=== PATIENT | female | born 1945 | race Caucasian/White ===

== ENCOUNTER 2018-07-02 16:46 | Inpatient (IN) | payer MEDICARE ==
[2018-07-02 17:57] LABS: ABS Basophils 0.1 10^3/ul (0-0.2); ABS Eosinophils 0.1 10^3/ul (0-0.6); ABS Lymphocytes 0.7 10^3/ul (1.0-4.8); ABS Monocytes 0.7 10^3/ul (0-0.8); ABS Neutrophils 10.3 10^3/ul (1.5-7.7); ABS Nucleated RBC 0 10^3/ul; Eosinophil % 0.8 % (0-6); Hematocrit 44 % (35-47); Hemoglobin 14.4 g/dl (12.0-16.0); Lymphocyte % 6.1 % (25-47); Mean Corpuscular HGB Conc 33 g/dl (31-36); Mean Corpuscular Hemoglobin 28 pg (27-31); Mean Corpuscular Volume 85 fL (80-97); Mean Platelet Volume 9.3 um3 (7.4-10.4); Nucleated Red Blood Cells % 0.1; Platelet Count 185 10^3/ul (150-450); Red Cell Distribution Width 15 % (10.5-15)
[2018-07-02] MEDS ORDERED: Morphine INJ* 2 MG/ML 1 ML SYRINGE (TWO MG - NEW SYRINGE VERSION) IV ONE (17:57)
--- NOTE | 2018-07-02 17:59 | ED ---
Lower Extremity - HPI Summary HPI Summary: 72-year-old female presents with left lower leg injury today. States that her dog's leash got caught in her left leg. She has pain in her left femur. She denies any previous fracture to the area. No numbness or tingling. She has not been able to place weight on the area. She denies any head injury or loss consciousness. She denies any chest pain or shortness of breath. fall was mechanical fall. She denies any other injury. States she has achy pain at baseline but when she moves the area she has an extreme pain. She denies any history asthma or COPD. She is not diabetic. - History of Current Complaint Chief Complaint: EDExtremityLower Stated Complaint: FALL/LEG PAIN Time Seen by Provider: 07/02/18 17:38 Pain Intensity: 5 - Allergies/Home Medications Allergies/Adverse Reactions: Allergies Allergy/AdvReac Type Severity Reaction Status Date / Time Sulfa (Sulfonamide Allergy Rash Verified 07/02/18 17:29 Antibiotics) PMH/Surg Hx/FS Hx/Imm Hx Endocrine/Hematology History: Denies: Hx Anticoagulant Therapy Cardiovascular History: Reports: Other Cardiovascular Problems/Disorders - murmur Denies: Hx Myocardial Infarction Respiratory History: Denies: Hx Asthma, Hx Chronic Obstructive Pulmonary Disease (COPD) - Immunization History Immunizations Up to Date: Yes Infectious Disease History: No Infectious Disease History: Denies: Traveled Outside the [place] in Last 30 Days - Family History Known Family History: Positive: Hypertension - Social History Alcohol Use: None Substance Use Type: Reports: None Smoking Status (MU): Former Smoker Review of Systems Negative: Fever Negative: Chest Pain Negative: Shortness Of Breath Positive: Myalgia - left leg pain All Other Systems Reviewed And Are Negative: Yes Physical Exam Triage Information Reviewed: Yes Vital Signs On Initial Exam: Initial Vitals Temp Pulse Resp BP Pulse Ox 98.5 F 76 17 158/87 91 07/02/18 17:10 07/02/18 17:10 07/02/18 17:10 07/02/18 17:10 07/02/18 17:10 Vital Signs Reviewed: Yes Appearance: Positive: Well-Appearing Skin: Positive: Warm, Dry Head/Face: Positive: Normal Head/Face Inspection Eyes: Positive: Normal, Conjunctiva Clear ENT: Positive: Pharynx normal Respiratory/Lung Sounds: Positive: Clear to Auscultation, Breath Sounds Present Cardiovascular: Positive: Normal, RRR Musculoskeletal: Positive: Limited @ - left leg, Other - external rotated, good pulses, capilary refill<2 secs, sensation grossly intact Neurological: Positive: Normal Psychiatric: Positive: Normal Diagnostics - Vital Signs Vital Signs Temp Pulse Resp BP Pulse Ox 07/02/18 17:10 98.5 F 76 17 158/87 91 - Laboratory Result Diagrams: 07/02/18 17:51 07/02/18 17:51 Lab Statement: Any lab studies that have been ordered have been reviewed, and results considered in the medical decision making process. - CT hip CT Interpretation: Positive (See Comments) - left intertronchanteric hip fx CT Interpretation Completed By: ED Physician chest CT Interpretation: No Acute Changes CT Interpretation Completed By: ED Physician - EKG No standard instances Cardiac Rate: NL EKG Rhythm: Sinus Rhythm EKG Interpretation: sinus rhythm with LVH Re-Evaluation - Re-Evaluation First Eval Re-Evaluation Time: 18:45 Change: Improved Comment: pain is better. no chest pain or SOB. patient states feels anxious. no history of COPD or asthma. is not a smoker. Lower Extremity Course/Dx - Course Course Of Treatment: 72-year-old female presents with left lower leg injury today. States that her dog's leash got caught in her leg. She has pain in her left femur. She denies any previous fracture to the area. No numbness or tingling. She has not been able to place weight on the area. She denies any head injury or loss consciousness. She denies any chest pain or shortness of breath. fall was mechanical fall. She denies any other injury. States she has achy pain at baseline but when she moves the area she has an extreme pain. On exam tenderness over left femur. External rotation present. Neurovascularly intact. X-ray shows increase in ED patient's O2 sats drops required some supplemental oxygen. Patient denies any respiratory history. xray show intratronchanter hip fracture of left hip. spoke with dr ma who will see tomorrow. spoke with dr red who agrees to admit patient. - Diagnoses Differential Diagnosis/HQI/PQRI: Positive: Fracture (Closed), Sprain, Strain Provider Diagnoses: Fracture, intertrochanteric, left femur - Physician Notifications Discussed Care Of Patient With: dr ma Time Discussed With Above Provider: 20:30 - will see tomorrow Discharge - Sign-Out/Discharge Documenting (check all that apply): Patient Departure - Discharge Plan Condition: Stable Disposition: ADMITTED TO [facility] - Billing Disposition and Condition Condition: STABLE Disposition: Admitted to [facility]
[2018-07-02 18:10] LABS: INR 1.02 (0.77-1.02)
[2018-07-02 19:48] LABS: EGFR Non-African American 106.1 (>60)
[2018-07-02] MEDS ORDERED: oxyCODONE/Acetamin 5/325 MG* TAB PO PRN (20:50)
[2018-07-02] MEDS ORDERED: Morphine INJ* 2 MG/ML 1 ML SYRINGE (TWO MG - NEW SYRINGE VERSION) IV PRN (20:50)
[2018-07-02] MEDS ORDERED: Ondansetron INJ* 2 MG/ML VIAL IV PRN (20:51)
[2018-07-02] MEDS ORDERED: Senna TAB PO PRN (20:51)
[2018-07-02] MEDS ORDERED: Docusate CAP* 100 MG PO PRN (20:51)
[2018-07-02] MEDS ORDERED: Polyethylene Glycol 3350* 17 GM PACKET PO PRN (20:52)
[2018-07-02] MEDS: amLODIPine TAB* 5 MG PO SCH (22:07)
[2018-07-02] MEDS: Heparin VIAL(*) 5000 UNITS/ML VIAL (FIVE THOUSAND) SUBCUT SCH (22:08)
--- NOTE | 2018-07-02 22:51 | HP ---
HOSPITAL MEDICINE HISTORY AND PHYSICAL: DATE OF ADMISSION: 07/02/18 PRIMARY CARE PHYSICIAN: None. ATTENDING PHYSICIAN: Kenzie Munson MD* (dictation provided by Tyra Mcgill NP). CHIEF COMPLAINT: Left leg pain. HISTORY OF PRESENT ILLNESS: Ms. Holcomb is a 72-year-old female with a past medical history of high blood pressure and murmur of unknown type, who presents to the hospital today with concern for a fall and left hip pain. Ms. Holcomb states she has been in her normal state of health and has had no acute complaints at all. She was with her dog today when he pulled on the leash and pulled her down. She had immediate pain in her left leg and called EMS to be brought to the hospital. In the emergency room, Ms. Holcomb had labs, which were unremarkable. Her vital signs were stable. She has had multiple imaging studies of her left hip and appears to have a left hip fracture. The Radiology read is pending. Ms. Holcomb states that she has had a penitentiary history of a murmur. She believes that her last evaluation for this was 2 years ago at [facility]. She reports that there was "a thickened tissue around one of my valves " and that there was no recommended followup at that time. She states that she is "lazy," but that she would be able to walk up a flight of stairs carrying groceries without chest pain. She states that this would make her short of breath, but that she would recover quickly. PAST MEDICAL HISTORY: 1. Hypertension. 2. Heart murmur. MEDICATIONS: The patient states she takes an herb for blood pressure and an herb for stress relief. ALLERGIES: SULFA. FAMILY HISTORY: The patient reports both mother and father related to heart disease. Her mother at 87. Dad at 96. SOCIAL HISTORY: No report of alcohol, tobacco, or drug use. The patient lives alone. She states that her brothers would be her healthcare proxy. REVIEW OF SYSTEMS: A 14-point review of systems was completed with Ms. Holcomb and all those not mentioned above were negative. PHYSICAL EXAMINATION GENERAL: Ms. Holcomb is lying in the bed. She is in no acute distress. VITAL SIGNS: Temperature 98.4, pulse rate 91, O2 saturation 97% on room air, blood pressure 188/97. LUNGS: Clear to auscultation bilaterally with no accessory muscle use and good aeration. HEART: S1, S2, with a systolic murmur at the sternal border. ABDOMEN: Soft and nontender with bowel sounds positive x4. EXTREMITIES: No cyanosis or edema. The patient's left leg is externally rotated and foreshortened. NEURO: She is alert. She is oriented x3. She moves all extremities equally. There is no facial asymmetry or focal weakness. Extraocular movements are intact. SKIN: Intact. DIAGNOSTIC STUDIES/LAB DATA: WBC 12.0, hemoglobin 14.4, hematocrit 44, platelet count 185. INR 1.02. Sodium 139, potassium 4.8, chloride 106, serum bicarbonate 27, BUN 26, creatinine 0.56, glucose 105, lactic acid 1.6. Troponin 0.01. The knee x-ray, hip and pelvis x-ray, femur x-ray, and chest x- ray reports are all pending, but appears to show a left intertrochanteric hip fracture. ASSESSMENT AND PLAN: Ms. Holcomb is a 72-year-old female with past medical history of hypertension and heart murmur, who presents today to the hospital with concern for a mechanical fall at home resulting in left hip pain and suspected left hip fracture. Our plants are for inpatient admission as expect the length of stay to be greater than 2 days for the followin. Left hip fracture: Again, the Radiology report is pending, but it appears to show a left hip fracture and certainly this is consistent with her clinical exam as her leg is externally rotated and foreshortened and she has severe pain. Dr. Chapin has been consulted and will be seeing the patient tomorrow. In terms of her cardiac risk, the patient's activity level is limited though she seems to be able to obtain a minimum 4 METs of activity without chest pain. She does have LVH noted on her EKG, which will be consistent with her history of hypertension, which has not been treated with any pharmacological agents. She has a systolic murmur, which she reports was worked up 2 years ago at [facility]. I have requested the records from [facility]. I have also ordered a transthoracic echocardiogram. I do not think that the echocardiogram should delay surgery, but I think that information obtained on the echo may provide an important information to guide the perioperative management of fluid status, etc. As she does not have any other cardiac risk factors, her overall risk according to the RCRI risk index will be 0.4% for an untoward cardiac event. Other than the echocardiogram, no other cardiac testing would be indicated. 2. Hypertension: The patient's blood pressure is elevated here in the emergency room, but she is also in pain. I plan to order amlodipine if the patient will be willing to take that to start tonight and then daily as I anticipate her blood pressure being elevated even with pain control. 3. DVT prophylaxis: Heparin subcu. 4. Code status: Full code. 5. Disposition: To surgical floor. TIME SPENT: Approximately 60 minutes were spent on the admission of this patient, more than half the time with the patient at the bedside reviewing the events leading up to this hospitalization, performing physical examination, reviewing my plan of care. TYRA [place], [place] [id number]/[facility] #: [id number] YOLY
[2018-07-02] MEDS: Acetaminophen TAB* 325 MG PO PRN (23:22)
[2018-07-03] MEDS: Heparin VIAL(*) 5000 UNITS/ML VIAL (FIVE THOUSAND) SUBCUT SCH ×2 (05:32→12:13)
[2018-07-03] MEDS: Acetaminophen TAB* 325 MG PO PRN ×2 (05:32→12:50)
--- NOTE | 2018-07-03 07:32 | RAD ---
INDICATION: Left femur fracture. COMPARISON: There are no prior studies available for comparison. TECHNIQUE: 2 AP views of the chest were obtained supine. FINDINGS: The heart appears mildly enlarged. The lungs are underinflated. There is mild prominence of the interstitial markings. No focal infiltrate is seen. There is blunting of the left costophrenic angle consistent with pleural thickening or a small pleural effusion. IMPRESSION: BLUNTING OF THE LEFT COSTOPHRENIC ANGLE CONSISTENT WITH PLEURAL THICKENING OR SMALL PLEURAL EFFUSION. R2
--- NOTE | 2018-07-03 07:35 | RAD ---
HISTORY: left leg pain COMPARISONS: None VIEWS: 2, Frontal and crosstable lateral lateral views of the left knee FINDINGS: BONE DENSITY: There is diffuse osteopenia. BONES: There is no displaced fracture. JOINTS: There is mild to moderate tricompartmental osteoarthritis. There is a large suprapatellar joint effusion without appreciable lipohemarthrosis. ALIGNMENT: There is no dislocation. SOFT TISSUES: Unremarkable. OTHER FINDINGS: None. IMPRESSION: 1. OSTEOPENIA. 2. OSTEOARTHRITIS. 3. LARGE JOINT EFFUSION. 4. NO ACUTE OSSEOUS INJURY. THE DEGREE OF OSTEOPENIA MAY MAKE A NONDISPLACED FRACTURE RADIOGRAPHICALLY OCCULT. IF SYMPTOMS PERSIST, RECOMMEND REPEAT IMAGING. R2
--- NOTE | 2018-07-03 07:37 | RAD ---
INDICATION: Left hip injury. COMPARISON: There are no prior studies available for comparison. TECHNIQUE: An AP view of the pelvis and frontal and lateral views of the left hip were obtained. FINDINGS: There is a fracture of the base at the left femoral neck likely extending into the intertrochanteric region which is slightly displaced. Incidental note is made of mild osteoarthritic change in the hips. IMPRESSION: THERE IS A SLIGHTLY DISPLACED FRACTURE AT THE BASE OF THE FEMORAL NECK LIKELY EXTENDING INTO THE INTERTROCHANTERIC REGION. R0
--- NOTE | 2018-07-03 07:38 | RAD ---
INDICATION: Left femur injury. TECHNIQUE: 2 views of the left femur were obtained. FINDINGS: There is a fracture at the base of the left femoral neck likely extending into the intratrochanteric trochanteric region which is slightly displaced. No additional fracture is seen. There is a large joint effusion present within the knee. IMPRESSION: 1. THERE IS A SLIGHTLY DISPLACED FRACTURE AT THE BASE OF THE FEMORAL NECK LIKELY EXTENDING INTO THE INTERTROCHANTERIC REGION. 2. LARGE JOINT EFFUSION WITHIN THE LEFT KNEE. R2
[2018-07-03] MEDS: amLODIPine TAB* 5 MG PO SCH (08:41)
--- NOTE | 2018-07-03 09:53 | RAD ---
INDICATION: Left hip fracture preoperative planning. COMPARISON: Comparison is made with a prior x-ray study of the left hip. TECHNIQUE: Contiguous axial sections were obtained through the pelvis without intravenous or oral contrast. Images were reconstructed in the coronal and sagittal planes. FINDINGS: There is a fracture involving the base of the femoral neck extending into the intertrochanteric region. The fracture fragments are impacted and in varus angulation. The pelvic bones appear intact. There is mild bilateral osteoarthritic change in the hips. The visualized portion of the small bowel colon appear nondistended. No free intraperitoneal air or fluid is seen. IMPRESSION: IMPACTED ANGULATED INTERTROCHANTERIC FRACTURE OF THE PROXIMAL LEFT FEMUR.
--- NOTE | 2018-07-03 11:00 | CONS ---
ORTHOPEDIC CONSULTATION: DATE OF CONSULT: 07/03/18 Thank you for this orthopedic consultation. CHIEF COMPLAINT: Left hip pain. HISTORY OF PRESENT ILLNESS: Ms. Holcomb is a 72-year-old female who presented to [facility] Emergency Room with left hip pain. Her dog pulled on the leash and pulled her down. She immediately fell onto her left side and had 10/ 10 pain in the left hip. Any attempt to stand or move the hip increased her pain. Immobilization decreased her pain. The patient was brought to [facility] Emergency Room by EMS and found to have a hip fracture. I am consulted for orthopedic fracture care. PAST MEDICAL HISTORY: Hypertension, heart murmur. PAST SURGICAL HISTORY: None. HOME MEDICATION: Herbals. ALLERGIES: SULFA. FAMILY HISTORY: Heart disease. SOCIAL HISTORY: No tobacco, alcohol, or recreational drug use. The patient lives alone. Her brothers are her health care proxy. Normally an independent ambulator. REVIEW OF SYSTEMS: Fourteen systems were reviewed with the patient today. Positive for left hip pain and recent fall. Positive for history of a heart murmur. Negative for fevers, chills, chest pain, shortness of breath, nausea, vomiting, headache, or dizziness. Otherwise, the patient reports review of systems is negative or not relevant. PHYSICAL EXAM: Vitals: Temperature 98.6, heart rate 91, blood pressure 162/ 78. General: The patient is a well-nourished female, in no apparent distress. Alert and oriented x3. Pleasant mood and appropriate affect. Gait: Not assessed. HEENT: Atraumatic, normocephalic. Pupils are equal and reactive to light. Heart: S1 and S2. Murmurs audible, systolic murmur. Lungs: Clear to auscultation. No wheezes, rales, or rhonchi. Abdomen: Soft, nontender, and nondistended. Left lower extremity: The patient's leg is externally rotated and shortened. She has tenderness around the hip. Any attempt to move the hip increases pain. Thigh is soft and slightly swollen. Calf is soft. No bony tenderness around the knee or ankle. She shows flexion-extension of her toes. She has 2+ palpable DP pulse. She reports full sensation to light touch in all nerve distributions. DIAGNOSTIC STUDIES/LAB DATA: Laboratory values show 07/02/18 labs, white blood cells 12.0, hematocrit 44, platelets 185. INR 1.02. Sodium 139, potassium 4.8 , chloride 106, BUN and creatinine 26 and 0.56. Alk phos 126. Multiple views of the patient's left hip show a low neck/high intertroch fracture, unclear if there is any involvement of the greater trochanter based on these views. ASSESSMENT AND PLAN: Ms. Holcomb is a 72-year-old female status post fall and a left hip fracture that is displaced and closed. Today, the patient and I discussed her operative and nonoperative treatment options. She would like to proceed with surgery. I did discuss with the patient that this is either a low neck or high intertrochanteric fracture. I will be requesting a CT scan to better evaluate the fracture pattern. If the greater trochanter is involved, I will recommend a cephalomedullary device. If this is a low neck fracture, I will likely recommend a hemiarthroplasty versus total hip arthroplasty. The patient and I briefly discussed the risks of surgery and she would like to proceed. I will obtain a CT scan. The patient is currently not cleared by the medical team until she has an echo. We will keep her n.p.o. for now and follow her today to assess preoperative optimization and clearance. She will be on bedrest, n.p.o., and should have a Burrows catheter with p.r.n. analgesia. [id number]/[facility] #: [id number] YOLY
--- NOTE | 2018-07-03 12:31 | ECHO ---
Patient: HUGO REYES [facility] Rec#: [id number] : 1945 Date: 07/03/2018 Age: 72y Height: 172.72 cm / 68.0 in Weight: 58.06 kg / 128.0 lbs Sex: F BSA: 1.69 Room#: [facility] Admit Date#: 07/02/2018 Type: Inpatient Referring: Tyra Mcgill NP Reading: Jayant Morris MD Boxing Machine Operator: [facility] Transthoracic Echocardiogram Indication: Murmur, pre-op BP: 162/78 HR: 84 Rhythm: NSR Findings History: HTN, murmur. Technical Comments: The study quality is good. Completed at 0845. Left Ventricle: The left ventricular chamber size is decreased. Severe concentric left ventricular hypertrophy is observed. Global left ventricular wall motion and contractility are within normal limits. The left ventricle appears hyperdynamic. The estimated ejection fraction is greater than 65%. There is no consistent Doppler evidence of clinically significant diastolic dysfunction. Left Atrium: The left atrium is moderately dilated. Right Ventricle: Moderator Band present. The right ventricular cavity size is normal. The right ventricular global systolic function is normal. Right Atrium: The right atrial cavity size is normal. Aortic Valve: The aortic valve is trileaflet. The aortic valve leaflets are mildly thickened. There is no evidence of aortic regurgitation. There is no evidence of aortic stenosis. Mitral Valve: There is posterior mitral annular calcification. The mitral valve leaflets are mildly thickened. Mitral valve leaflet mobility is mildly restricted. There is moderate mitral regurgitation. There is mild mitral stenosis. The mean gradient across the mitral valve is 6.29 mmHg. The peak gradient across the mitral valve is 11.5 mmHg. The pressure half time of the mitral valve is 81.21 msec. The mitral valve area, by pressure half time, is calculated at 2.7 cm2. Systolic anterior motion is visualized with left ventricular outflow tract obstruction. Tricuspid Valve: The tricuspid valve leaflets are mildly thickened. There is moderate tricuspid regurgitation. The right ventricular systolic pressure is estimated at 64 mmHg. There is evidence of moderate to severe pulmonary hypertension. There is no tricuspid stenosis. Pulmonic Valve: The pulmonic valve appears normal. There is a trace pulmonic regurgitation. There is no pulmonic stenosis. Pericardium: There is no significant pericardial effusion. Aorta: There is no dilatation of the ascending aorta. There is no dilatation of the aortic arch. There is no dilation of the aortic root. Pulmonary Artery: The main pulmonary artery appears normal. Venous: The inferior vena cava appears normal in size. There is a greater than 50% respiratory change in the inferior vena cava dimension. Summary: There was not any prior study for comparison. Conclusions Severe concentric left ventricular hypertrophy is observed. The left ventricle appears hyperdynamic. The estimated ejection fraction is greater than 65%. There is no consistent Doppler evidence of clinically significant diastolic dysfunction. The right ventricular global systolic function is normal. There is no evidence of aortic stenosis. Severe LV outflow tract obstruction. Peak velocity 5 m/sec Mean gradient 52 mmHg Mitral valve leaflet mobility is mildly restricted. There is moderate mitral regurgitation. There is mild mitral stenosis. The mean gradient across the mitral valve is 6.29 mmHg. There is moderate tricuspid regurgitation. There is evidence of moderate to severe pulmonary hypertension. There is no significant pericardial effusion. Measurements Name Value Normal Range RVIDd (AP) 2D 2.7 cm (0.9 - 2.6) RVDdMajor (2D) 3.5 cm (2.2 - 4.4) RAd ISD 4CH 4.8 cm (3.4 - 4.9) RA (A4C)W 3.9 cm (2.9 - 4.6) IVSd (2D) 2.2 cm (0.6 - 1) LVPWd (2D) 2.2 cm (0.6 - 1) LVIDd (2D) 2.5 cm (3.6 - 5.4) LVIDs (2D) 1.6 cm - LV FS (2D) 36 % (25 - 45) Aortic Annulus 2 cm (1.4 - 2.6) Ao root diameter (2D) 3 cm (2.1 - 3.5) Ascending Ao 2.6 cm (2.1 - 3.4) Aortic arch 1.9 cm (1.8 - 3.4) LA dimension (AP) 2D 4.7 cm (2.3 - 3.8) LAd ISD 4CH 5.5 cm (2.9 - 5.3) LA ISD 4CH W 4.5 cm (2.5 - 4.5) Name Value Normal Range LA ESV SP 4CH (A/L) 67 ml - LA ESV SP 2CH (A/L) 89 ml - LA ESV BP (A/L) 82 ml - LA ESV BP (A/L) index 49 ml/m2 - LA ESV SP 4CH (MOD) 62 ml - LA ESV SP 2CH (MOD) 83 ml - Name Value Normal Range MV E-wave Vmax 1.52 m/sec - MV deceleration time 268 msec - MV A-wave Vmax 1.42 m/sec - MV E:A ratio 1.06 ratio - LV septal e' Vmax 0.04 m/sec - LV lateral e' Vmax 0.06 m/sec - LV E:e' septal ratio 38 ratio - LV E:e' lateral ratio 25.3 ratio - Name Value Normal Range AV Vmax 4.38 m/sec - AV VTI 90 cm - AV peak gradient 77.4 mmHg - AV mean gradient 39.72 mmHg - LVOT diameter 2 cm - [place] Vmax 0.9 m/sec - Name Value Normal Range MV Vmax 1.7 m/sec - MV VTI 41.22 cm - MV peak gradient 11.5 mmHg - MV mean gradient 6.29 mmHg - MV PHT 81.21 msec - MR Vmax 8 m/sec - MR VTI 217.4 cm - MR flow (PISA) 116.8 ml/sec - MR ERO 0.15 cm2 - MR PISA radius 0.7 cm - MR alias Vmax 37 cm/sec - MVA (PHT) 2.7 cm2 - Name Value Normal Range TR Vmax 3.9 m/sec - TR peak gradient 61 mmHg - RAP 3 mmHg - RVSP 64 mmHg - IVC diameter 1.9 cm - Name Value Normal Range PV Vmax 1.1 m/sec - PV peak gradient 4.83 mmHg -
[2018-07-03] MEDS ORDERED: Metoprolol Tartrate IV* 1 MG/ML 5 ML VIAL IV PRN (12:57)
--- NOTE | 2018-07-03 13:35 | RAD ---
HISTORY: LEFT HIP KEIRY VS TOTAL VS NAIL COMPARISONS: July 02, 2018 VIEWS: 3, Frontal view of the pelvis with frontal and crosstable lateral views of the left hip FINDINGS: BONE DENSITY: Normal. BONES: Again noted is a left intertrochanteric fracture with minimal subtrochanteric extension. There is varus angulation. JOINTS: There is mild osteoarthritis of the hips and SI joints bilaterally. ALIGNMENT: There is no dislocation. SOFT TISSUES: Unremarkable. OTHER FINDINGS: None. IMPRESSION: AGAIN NOTED IS AN ANGULATED FRACTURE OF THE FEMUR.
--- NOTE | 2018-07-03 14:01 | PN ---
Subjective Date of Service: 07/03/18 Objective Active Medications: Acetaminophen (Tylenol Tab*) 650 mg PO Q6H PRN PRN Reason: PAIN Last Admin: 07/03/18 12:50 Dose: 650 mg Amlodipine Besylate (Norvasc Tab*) 5 mg PO DAILY [facility] Last Admin: 07/03/18 08:41 Dose: 5 mg Docusate Sodium (Colace Cap*) 100 mg PO BID PRN PRN Reason: CONSTIPATION Heparin Sodium (Porcine) (Heparin Vial(*)) 5,000 units SUBCUT Q8HR [facility] Last Admin: 07/03/18 12:13 Dose: Not Given Lactated Ringer's (Lactated Ringers 1000 Ml Bag*) 1,000 mls @ 125 mls/hr IV PER RATE [facility] Metoprolol Tartrate (Lopressor Iv*) 5 mg IV Q4H [facility] Morphine Sulfate (Morphine Inj ((Syringe))*) 4 mg IV Q2H PRN PRN Reason: PAIN Ondansetron HCl (Zofran Inj*) 4 mg IV Q6H PRN PRN Reason: NAUSEA Oxycodone/Acetaminophen (Percocet 5/325 Tab*) 1 tab PO Q4H PRN PRN Reason: PAIN Polyethylene Glycol/Electrolytes (Miralax*) 17 gm PO DAILY PRN PRN Reason: CONSTIPATION Senna (Senokot Tab*) 1 tab PO BEDTIME PRN PRN Reason: CONSTIPATION Vital Signs - 8 hr 07/03/18 07/03/18 07/03/18 07:30 07:37 11:11 Temperature 98.0 F 98.0 F Pulse Rate 87 89 Respiratory 16 16 18 Rate Blood Pressure 156/70 158/67 (mmHg) O2 Sat by Pulse 95 90 Oximetry 07/03/18 12:46 Temperature Pulse Rate 94 Respiratory Rate Blood Pressure (mmHg) O2 Sat by Pulse 94 Oximetry Oxygen Devices in Use Now: Nasal Cannula Result Diagrams: 07/02/18 17:51 07/02/18 17:51 Assess/Plan/Problems-Billing Assessment:
[2018-07-03] MEDS ORDERED: NS 0.9% 500 ML* 500 ML IV ONE (14:02)
[2018-07-03] MEDS: Metoprolol Tartrate IV* 1 MG/ML 5 ML VIAL IV SCH ×2 (14:06→22:24)
--- NOTE | 2018-07-03 14:08 | PN ---
Subjective Date of Service: 07/03/18 Interval History: Pt feels well, awaiting surgery. She had not seen doctor for "ages". she sees a "neonatal specialist" Denies CP, denies THOMAS Objective Active Medications: Acetaminophen (Tylenol Tab*) 650 mg PO Q6H PRN PRN Reason: PAIN Last Admin: 07/03/18 12:50 Dose: 650 mg Amlodipine Besylate (Norvasc Tab*) 5 mg PO DAILY [facility] Last Admin: 07/03/18 08:41 Dose: 5 mg Docusate Sodium (Colace Cap*) 100 mg PO BID PRN PRN Reason: CONSTIPATION Heparin Sodium (Porcine) (Heparin Vial(*)) 5,000 units SUBCUT Q8HR [facility] Last Admin: 07/03/18 12:13 Dose: Not Given Lactated Ringer's (Lactated Ringers 1000 Ml Bag*) 1,000 mls @ 125 mls/hr IV PER RATE [facility] Metoprolol Tartrate (Lopressor Iv*) 5 mg IV Q4H [facility] Morphine Sulfate (Morphine Inj ((Syringe))*) 4 mg IV Q2H PRN PRN Reason: PAIN Ondansetron HCl (Zofran Inj*) 4 mg IV Q6H PRN PRN Reason: NAUSEA Oxycodone/Acetaminophen (Percocet 5/325 Tab*) 1 tab PO Q4H PRN PRN Reason: PAIN Polyethylene Glycol/Electrolytes (Miralax*) 17 gm PO DAILY PRN PRN Reason: CONSTIPATION Senna (Senokot Tab*) 1 tab PO BEDTIME PRN PRN Reason: CONSTIPATION Vital Signs - 8 hr 07/03/18 07/03/18 07/03/18 07:30 07:37 11:11 Temperature 98.0 F 98.0 F Pulse Rate 87 89 Respiratory 16 16 18 Rate Blood Pressure 156/70 158/67 (mmHg) O2 Sat by Pulse 95 90 Oximetry 07/03/18 12:46 Temperature Pulse Rate 94 Respiratory Rate Blood Pressure (mmHg) O2 Sat by Pulse 94 Oximetry Oxygen Devices in Use Now: Nasal Cannula Appearance: 72 yo F in nAD, aAOx3 Eyes: No Scleral Icterus, PERRLA Ears/Nose/Mouth/Throat: NL Teeth, Lips, Gums, Mucous Membranes Moist Neck: NL Appearance and Movements; NL JVP, Trachea Midline Respiratory: Symmetrical Chest Expansion and Respiratory Effort Cardiovascular: RRR, - - 3/6 GHADA Abdominal: NL Sounds; No Tenderness; No Distention, No Hepatosplenomegaly Lymphatic: No Cervical Adenopathy Extremities: No Edema, No Clubbing, Cyanosis Skin: No Rash or Ulcers, No Nodules or Sclerosis Neurological: Alert and Oriented x 3, NL Muscle Strength and Tone Result Diagrams: 07/02/18 17:51 07/02/18 17:51 Assess/Plan/Problems-Billing Assessment: 72 yo F with no PMHx with mechanical hip fracture - Patient Problems (1) Hip fracture Comment: plan to go to OR today. 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 D/w DR. Morris and DR. Simpson . Pt is an acceptable candidate for surgery. To opimise her medically -started metoprolol and increased IVF. Pt is aware that she has a significant heart condition. At baseline she was asymptomatic at home. (2) HTN (hypertension) Comment: likely longstanding and the cause of LVH cont Norvasc in AM, lopressor IV (3) DVT prophylaxis Comment: SCD's preop Status and Disposition: inpatient
[2018-07-03 14:22] LABS: ABS Basophils 0.1 10^3/ul (0-0.2); ABS Eosinophils 0 10^3/ul (0-0.6); ABS Lymphocytes 0.6 10^3/ul (1.0-4.8); ABS Monocytes 1.3 10^3/ul (0-0.8); ABS Neutrophils 9.7 10^3/ul (1.5-7.7); ABS Nucleated RBC 0 10^3/ul; Eosinophil % 0.2 % (0-6); Hematocrit 39 % (35-47); Hemoglobin 12.8 g/dl (12.0-16.0); Lymphocyte % 5.1 % (25-47); Mean Corpuscular HGB Conc 33 g/dl (31-36); Mean Corpuscular Hemoglobin 28 pg (27-31); Mean Corpuscular Volume 85 fL (80-97); Mean Platelet Volume 9.3 um3 (7.4-10.4); Nucleated Red Blood Cells % 0; Platelet Count 171 10^3/ul (150-450); Red Blood Count 4.56 10^6/ul (4.00-5.40); Red Cell Distribution Width 15 % (10.5-15); White Blood Count 11.7 10^3/ul (3.5-10.8)
[2018-07-03 14:30] LABS: INR 1.1 (0.77-1.02)
[2018-07-03 14:59] LABS: EGFR Non-African American 147.9 (>60)
[2018-07-03] MEDS ORDERED: Lidocaine 2% PF * 5 ML VIAL ONE ×2 (19:45→21:07)
[2018-07-03] MEDS ORDERED: ROPIVACAINE 5 MG/ML 30 ML BTL (0.5%) ONE (19:49)
[2018-07-03] MEDS ORDERED: ceFAZolin 2 GM PREMIX (*) 2 GM/50 ML BAG IVPB ONE ×2 (19:54→20:54)
[2018-07-03] MEDS ORDERED: fentaNYL* 50 MCG/ML 2 ML VIAL (100 MCG VIAL) ONE ×2 (20:06→23:21)
[2018-07-03] MEDS ORDERED: Propofol* 10 MG/ML 20 ML BTL IV PUSH ONE (21:07)
[2018-07-03] MEDS ORDERED: Metoprolol Tartrate IV* 1 MG/ML 5 ML VIAL ONE (21:16)
[2018-07-03] MEDS ORDERED: fentaNYL* 50 MCG/ML 2 ML VIAL (100 MCG VIAL) IV PRN (22:23)
[2018-07-03] MEDS ORDERED: Naloxone* 0.4 MG/ML 1 ML VIAL IV PRN (22:23)
--- NOTE | 2018-07-03 23:51 | PN ---
Progress Note - Progress Note Date of Service: 07/03/18 Note: Anesthesiology requested eval in PACU due to patient's new dx of LVOT obstruction to determine if she needs ICU observation overnight. Tolerated procedure well. She is confused. Vitals stable - HR in 80's. Denying any pain. Recommend remove arterial line and send to 4S for telemetry monitoring this evening.
[2018-07-04] MEDS: Heparin VIAL(*) 5000 UNITS/ML VIAL (FIVE THOUSAND) SUBCUT SCH (01:13)
[2018-07-04] MEDS: Metoprolol Tartrate IV* 1 MG/ML 5 ML VIAL IV SCH ×3 (01:14→05:44)
[2018-07-04] MEDS ORDERED: Morphine INJ* 2 MG/ML 1 ML SYRINGE (TWO MG - NEW SYRINGE VERSION) IV PRN (03:05)
[2018-07-04 05:33] LABS: Hematocrit 38 % (35-47); Hemoglobin 12.5 g/dl (12.0-16.0); Mean Corpuscular HGB Conc 33 g/dl (31-36); Mean Corpuscular Hemoglobin 28 pg (27-31); Mean Corpuscular Volume 86 fL (80-97); Mean Platelet Volume 9.1 um3 (7.4-10.4); Platelet Count 152 10^3/ul (150-450); Red Blood Count 4.39 10^6/ul (4.00-5.40); Red Cell Distribution Width 14 % (10.5-15); White Blood Count 17.3 10^3/ul (3.5-10.8)
[2018-07-04] MEDS: ceFAZolin 1 GM* Q8H x 3 doses IVPB SCH ×6 (05:48→22:26)
[2018-07-04 05:50] LABS: EGFR Non-African American 147.9 (>60)
--- NOTE | 2018-07-04 07:13 | RAD ---
INDICATION: Traumatic fracture of the left hip operative reduction and internal fixation. COMPARISON: Comparison is made with a prior study from July 02, 2018. TECHNIQUE: AP and lateral images of the left hip were obtained in the operating room. 64.3 seconds of intermittent fluoroscopic guidance were provided. FINDINGS: The patient is status post operative reduction internal fixation. An intramedullary mateus and femoral head nail have been placed stabilizing the fracture fragments. The bones are in normal alignment. IMPRESSION: INTRAOPERATIVE CONTROL FILMS. CPT II Codes: G9500
[2018-07-04] MEDS: amLODIPine TAB* 5 MG PO SCH (08:35)
[2018-07-04] MEDS: Acetaminophen TAB* 325 MG PO PRN (08:51)
[2018-07-04] MEDS: Metoprolol Tartrate TAB* 25 MG PO SCH ×2 (08:58→22:34)
[2018-07-04] MEDS ORDERED: Metoprolol Tartrate IV* 1 MG/ML 5 ML VIAL IV PRN (11:13)
[2018-07-04] MEDS: Enoxaparin(*) 30 MG/0.3 ML SYR SUBCUT SCH (12:03)
--- NOTE | 2018-07-04 14:29 | PN ---
Subjective Date of Service: 07/04/18 Interval History: Pt 's left hip post op pain was relieved with Tylenol. Feels well. today she was bale to tell me that she used to be on Verapamil several yrs ago and it caused her to be constipated-she stopped it Objective Active Medications: Acetaminophen (Tylenol Tab*) 650 mg PO Q6H PRN PRN Reason: PAIN Last Admin: 07/04/18 08:51 Dose: 650 mg Docusate Sodium (Colace Cap*) 100 mg PO BID PRN PRN Reason: CONSTIPATION Enoxaparin Sodium (Lovenox(*)) 30 mg SUBCUT DAILY [facility] Last Admin: 07/04/18 12:03 Dose: 30 mg Cefazolin Sodium 1 gm/ Sodium (Chloride) 50 mls @ 200 mls/hr IVPB Q8H [facility] Stop: 07/04/18 21:14 Last Admin: 07/04/18 13:22 Dose: 200 mls/hr Metoprolol Tartrate (Lopressor Tab*) 25 mg PO BID [facility] Last Admin: 07/04/18 08:58 Dose: 25 mg Metoprolol Tartrate (Lopressor Iv*) 5 mg IV Q6H PRN PRN Reason: BLOOD PRESSURE Morphine Sulfate (Morphine Inj ((Syringe))*) 2 mg IV Q2H PRN PRN Reason: PAIN Last Admin: 07/04/18 03:24 Dose: 2 mg Ondansetron HCl (Zofran Inj*) 4 mg IV Q6H PRN PRN Reason: NAUSEA Oxycodone/Acetaminophen (Percocet 5/325 Tab*) 1 tab PO Q4H PRN PRN Reason: PAIN Polyethylene Glycol/Electrolytes (Miralax*) 17 gm PO DAILY PRN PRN Reason: CONSTIPATION Senna (Senokot Tab*) 1 tab PO BEDTIME PRN PRN Reason: CONSTIPATION Vital Signs - 8 hr 07/04/18 07/04/18 07/04/18 07:48 08:00 11:21 Temperature 98.2 F 98.4 F Pulse Rate 85 78 Respiratory 16 18 16 Rate Blood Pressure 161/79 106/50 (mmHg) O2 Sat by Pulse 99 97 Oximetry Oxygen Devices in Use Now: Nasal Cannula Appearance: 72 yo f in nAD, aAOx3 Eyes: No Scleral Icterus, PERRLA Ears/Nose/Mouth/Throat: NL Teeth, Lips, Gums, Mucous Membranes Moist Neck: NL Appearance and Movements; NL JVP, Trachea Midline Respiratory: Symmetrical Chest Expansion and Respiratory Effort, - - crackles at b/l bases Cardiovascular: - - 3/6 GHADA Abdominal: NL Sounds; No Tenderness; No Distention, No Hepatosplenomegaly Lymphatic: No Cervical Adenopathy Extremities: No Edema, No Clubbing, Cyanosis Skin: No Rash or Ulcers, No Nodules or Sclerosis, - - left hip incision covered post op -dressings not removed Neurological: Alert and Oriented x 3, NL Muscle Strength and Tone Result Diagrams: 07/04/18 05:14 07/04/18 05:14 Assess/Plan/Problems-Billing Assessment: - Patient Problems (1) Hip fracture Comment: s/p left hip surgery by Dr. Chapin on 07/03/18 post op on tlem (no arrythmia noted) transfer to [facility] WBAT PT/OT/PMRU consults in place (2) HTN (hypertension) Comment: likely longstanding and the cause of LVH lopressor cont (3) DVT prophylaxis Comment: Lovenox as per ortho Status and Disposition: inpatient
--- NOTE | 2018-07-04 16:53 | OP ---
OPERATIVE REPORT: DATE OF OPERATION: 07/03/18 DATE OF : 43 SURGEON: Ellen Chapin MD. ANESTHESIOLOGIST: Dr. Simpson. ANESTHESIA: General. PRE-OP DIAGNOSIS: Left comminuted displaced intertrochanteric hip fracture. POST-OP DIAGNOSIS: Left comminuted displaced intertrochanteric hip fracture. OPERATIVE PROCEDURE: Open reduction and internal fixation of left comminuted displaced intertrochant carlos hip fracture with cephalomedullary device. ESTIMATED BLOOD LOSS: 300 cc. COMPLICATIONS: None. SPECIMEN: None. HARDWARE USED: This is a Latisha short gamma nail for the nail and a 11 x 180 x 125 short gamma nail . For the proximal lag screw a 10.5 x 95 mm. For the distal locking screw a 5 x 32.5 distal locking screw. BRIEF HISTORY/INDICATIONS: Ms. Holcomb is a 72-year-old female who fell when she was pulled by her dog on 07/02/18. The patient fell on to her left side and immediately had severe pain. She was brought to [facility] by EMS and found to have an intertrochanteric hip fracture. I was consulted for orthopedic fracture care. I discussed the patient's operative and nonoperative treatment option s. She elected to undergo operative fixation of the hip fracture. A CT scan was obtained and confir med a comminuted intertrochanteric hip fracture. I recommended a cephalomedullary device for fixatio n of the fracture and she agreed. Informed consent was obtained from the patient. She understood the risks of surgery included, but were not limited to bleeding, infection, damage to nearby structures, continued pain, need for further surgery, intraoperative fracture, nerve palsy, hardware failure or loosening, continued pain, stroke, heart attack, blood clot, and . She wished to proceed. The patient was medically optimized by the hospitalist team before we proceeded to the OR. INTRAOPERATIVE FINDINGS: Intraoperatively, the patient was noted to have a comminuted intertrochante silva hip fracture. The greater trochanter had comminution as well as the intertrochanteric portion of the fracture with displacement. DESCRIPTION OF PROCEDURE: Ms. Holcomb was identified in the preanesthesia unit. Her left lower extremi ty was marked as the correct operative site. Informed consent was signed and placed in the chart. T he patient was taken to the operating room and placed under general anesthesia. A Burrows catheter was placed. The patient was transferred to the fracture table. The left lower extremity was placed in the traction boot. The hip had a reduction maneuver performed with flexion to extension, internal ro tation, and abduction. A small amount of traction was placed on the traction boot. The right lower extremity was placed in the lithotomy position with adequate padding. AP and lateral C-arm views vie wed the left hip and fracture site. It was deemed that there was a satisfactory reduction in the AP and lateral planes and decision was made to proceed. The left lower extremity was prepped and draped in the usual sterile fashion. Preop time-out was made to correctly identify the patient, side, and site. Appropriate perioperative antibiotics were given within 1 hour of incision. A 4-cm incision was made proximal to the tip of the greater trochanter. Electrocautery was used to di ssect down to the lateral fascial layer. The lateral fascial layer was incised in line with the skin incision. Finger dissection down to the tip of the greater trochanter was performed. An awl was us ed to find the proper starting point along the tip of the greater trochanter. The starting point was confirmed on AP and lateral C-arm views. The awl was then carefully advanced. A guidewire was then placed through the cannulated portion of the awl across the fracture site and down the intramedullary femoral canal. The awl was carefully removed. AP and lateral C-arm views showed satisfactory place ment of the guidewire. Next, sequential reaming was performed over the guidewire. Distally, this wa s performed to size 13, proximally to a 15.5. A short gamma nail was chosen. This was a 11 x 180 x 125 short gamma nail. This was carefully placed over the guidewire. The fracture reduction held. A P and lateral C-arm confirmed satisfactory placement of the short gamma nail. The lateral gamma nail arm guide was then used to place the proximal lag screw. A 10 blade was used to make an incision in the skin and then this incision was carried to the fascial layer. Mosquitos w ere used to open this pathway. The lag screw guide was then advanced down to the bone and locked int o place. A guidewire was used to find a central position in the femoral head and neck. This was con firmed on AP and lateral C-arm views. The guidewire was measured at 95 mm. Predrilling was performed over the guidewire. A 10.5 x 95 mm proximal lag screw was then placed over the guidewire. AP and l ateral C-arm views confirmed satisfactory central position in the femoral head and neck. Tip-apex di ameter was deemed to be appropriate. Fracture reduction had held. Proximal set screw was placed in the nail and locked into position. Next, attention was turned to placement of the distal locking screw. A 10 blade was used to make an incision in the skin and lateral fascial layer. Mosquitos were used to dissect down the bone. The d istal locking guide was then advanced down to bone. A drill was used to predrill. This length was m easured at 32.5 mm. A 5 x 32.5 distal locking screw was chosen and advanced through the distal porti on of the short gamma nail. AP and lateral C-arm views confirmed satisfactory position of the distal locking screw. The lateral gamma nail guide was removed. The AP and lateral C-arm views confirmed satisfactory redu ction of the fracture and satisfactory placement of the hardware. The incisions were carefully irriga adrian. The lateral fascial layer was closed using #1 Vicryl. The rest of the incisions were closed us ing in a layered fashion using interrupted 0 and 2-0 Vicryls. Skin was closed using jodie. Steril e Xeroform, 4 x 4s, and paper tape were used to cover the incisions. The patient's anesthesia was re versed without difficulty. She was transferred to a regular bed and taken to PACU in stable conditio n. Intended weightbearing will be weightbearing as tolerated. Intended DVT prophylaxis will be Love nox. [id number]/[facility] #: [id number]
--- NOTE | 2018-07-04 17:06 | PN ---
Progress Note - Progress Note Date of Service: 07/04/18 SOAP: Subjective: [] Patient seen and examined at bedside. She feels well without CP, SOB, dizziness, nausea. Her hip pain is well controlled. Objective: [] General: NAD, well appearing LLE: left hip dressing CDI. Thigh is soft. DF/PF intact. Sensation intact distally. 2+ DP pulse Assessment: []POD 1 sp left gamma nail Plan: []WBAT PT/OT lovenox Will recheck WBC in AM
[2018-07-05 05:45] LABS: Hematocrit 34 % (35-47); Hemoglobin 11.4 g/dl (12.0-16.0); Mean Corpuscular HGB Conc 34 g/dl (31-36); Mean Corpuscular Hemoglobin 29 pg (27-31); Mean Corpuscular Volume 85 fL (80-97); Mean Platelet Volume 9.5 um3 (7.4-10.4); Platelet Count 149 10^3/ul (150-450); Red Cell Distribution Width 15 % (10.5-15); White Blood Count 15.5 10^3/ul (3.5-10.8)
[2018-07-05 06:01] LABS: EGFR Non-African American 136.6 (>60)
[2018-07-05 06:21] LABS: ABS Basophils 0.1 10^3/ul (0-0.2); ABS Eosinophils 0 10^3/ul (0-0.6); ABS Lymphocytes 0.8 10^3/ul (1.0-4.8); ABS Monocytes 1.7 10^3/ul (0-0.8); ABS Neutrophils 12.9 10^3/ul (1.5-7.7); ABS Nucleated RBC 0 10^3/ul; Eosinophil % 0.2 % (0-6); Lymphocyte % 5.3 % (25-47); Nucleated Red Blood Cells % 0
[2018-07-05] MEDS: Acetaminophen TAB* 325 MG PO PRN ×3 (08:01→20:35)
[2018-07-05] MEDS: Enoxaparin(*) 30 MG/0.3 ML SYR SUBCUT SCH (09:01)
[2018-07-05] MEDS: Metoprolol Tartrate TAB* 25 MG PO SCH ×2 (09:01→20:35)
--- NOTE | 2018-07-05 10:14 | PN ---
Subjective Date of Service: 07/05/18 Interval History: Pt is doing well. Pain it controlled with meds. Took first steps with PT today. Objective Active Medications: Acetaminophen (Tylenol Tab*) 650 mg PO Q6H PRN PRN Reason: PAIN Last Admin: 07/05/18 08:01 Dose: 650 mg Docusate Sodium (Colace Cap*) 100 mg PO BID PRN PRN Reason: CONSTIPATION Enoxaparin Sodium (Lovenox(*)) 30 mg SUBCUT DAILY [facility] Last Admin: 07/05/18 09:01 Dose: 30 mg Metoprolol Tartrate (Lopressor Tab*) 25 mg PO BID [facility] Last Admin: 07/05/18 09:01 Dose: 25 mg Metoprolol Tartrate (Lopressor Iv*) 5 mg IV Q6H PRN PRN Reason: BLOOD PRESSURE Morphine Sulfate (Morphine Inj ((Syringe))*) 2 mg IV Q2H PRN PRN Reason: PAIN Last Admin: 07/04/18 03:24 Dose: 2 mg Ondansetron HCl (Zofran Inj*) 4 mg IV Q6H PRN PRN Reason: NAUSEA Oxycodone/Acetaminophen (Percocet 5/325 Tab*) 1 tab PO Q4H PRN PRN Reason: PAIN Polyethylene Glycol/Electrolytes (Miralax*) 17 gm PO DAILY PRN PRN Reason: CONSTIPATION Senna (Senokot Tab*) 1 tab PO BEDTIME PRN PRN Reason: CONSTIPATION Vital Signs - 8 hr 07/05/18 07/05/18 03:58 08:05 Temperature 99.0 F 97.3 F Pulse Rate 86 89 Respiratory 20 18 Rate Blood Pressure 146/58 136/65 (mmHg) O2 Sat by Pulse 98 92 Oximetry Oxygen Devices in Use Now: Nasal Cannula Appearance: 72 yo f in nAD, aAOx3 Eyes: No Scleral Icterus, PERRLA Ears/Nose/Mouth/Throat: NL Teeth, Lips, Gums, Mucous Membranes Moist Neck: NL Appearance and Movements; NL JVP, Trachea Midline Respiratory: Symmetrical Chest Expansion and Respiratory Effort, Clear to Auscultation Cardiovascular: RRR, - - 3/6 GHADA Abdominal: NL Sounds; No Tenderness; No Distention, No Hepatosplenomegaly Lymphatic: No Cervical Adenopathy Extremities: No Clubbing, Cyanosis, - - mild left thigh edema post op. Skin: No Nodules or Sclerosis, - - post op incision not inspected Neurological: Alert and Oriented x 3, NL Muscle Strength and Tone Result Diagrams: 07/05/18 05:24 07/05/18 05:24 Assess/Plan/Problems-Billing Assessment: - Patient Problems (1) Hip fracture Comment: s/p left hip surgery by Dr. Chapin on 07/03/18 post op on telem (no arrythmia noted), then transfered to [facility] on 07/04/18 Leukocytosis-likely reactive, but will check UA Burrows to be removed today WBAT PT/OT/PMRU ongoing (2) HTN (hypertension) Comment: likely longstanding and the cause of LVH lopressor started at admission (3) DVT prophylaxis Comment: Lovenox as per ortho Status and Disposition: inpatient
[2018-07-05 10:18] LABS: Urine Appearance Clear; Urine Blood 3+ (Negative); Urine Color Yellow; Urine Ketones Trace (Negative); Urine Protein 1+(30 mg/dL) (Negative); Urine Red Blood Cell 3+(>10/hpf) (Absent); Urine Specific Gravity 1.021 (1.010-1.030); Urine Urobilinogen Negative (Negative); Urine White Blood Cell 3+(>20/hpf) (Absent)
--- NOTE | 2018-07-05 10:22 | PN ---
Progress Note - Progress Note Date of Service: 07/05/18 SOAP: Subjective: [] Patient seen at bedside. Her hip pain is very well controlled and she has no complaints. She denies chest pain, shortness of breath, dizziness or nausea. She does have some thigh cramping which she considers tolerable. WBC trending down though remains elevated. Objective: []General: NAD, well appearing LLE: left hip dressing changed. Incision CDI without surrounding erythema. Thigh is soft. DF/PF intact. Sensation intact distally. 2+ DP pulse Assessment: []POD 2 sp left gamma nail Plan: []WBAT PT/OT lovenox UA pending [facility] co-management Laboratory Last Values WBC 15.5 10^3/ul (3.5-10.8) H 07/05/18 05:24 RBC 4.00 10^6/ul (4.00-5.40) 07/05/18 05:24 Hgb 11.4 g/dl (12.0-16.0) L 07/05/18 05:24 Hct 34 % (35-47) L 07/05/18 05:24 MCV 85 fL (80-97) 07/05/18 05:24 MCH 29 pg (27-31) 07/05/18 05:24 MCHC 34 g/dl (31-36) 07/05/18 05:24 RDW 15 % (10.5-15) 07/05/18 05:24 Plt Count 149 10^3/ul (150-450) L 07/05/18 05:24 MPV 9.5 um3 (7.4-10.4) 07/05/18 05:24 Neut % (Auto) 82.8 % (38-83) 07/05/18 05:24 Lymph % (Auto) 5.3 % (25-47) L 07/05/18 05:24 [place] % (Auto) 11.2 % (0-7) H 07/05/18 05:24 Eos % (Auto) 0.2 % (0-6) 07/05/18 05:24 Baso % (Auto) 0.5 % (0-2) 07/05/18 05:24 Absolute Neuts (auto) 12.9 10^3/ul (1.5-7.7) H 07/05/18 05:24 Absolute Lymphs (auto) 0.8 10^3/ul (1.0-4.8) L 07/05/18 05:24 Absolute Monos (auto) 1.7 10^3/ul (0-0.8) H 07/05/18 05:24 Absolute Eos (auto) 0 10^3/ul (0-0.6) 07/05/18 05:24 Absolute Basos (auto) 0.1 10^3/ul (0-0.2) 07/05/18 05:24 Absolute Nucleated RBC 0 10^3/ul 07/05/18 05:24 Nucleated RBC % 0 07/05/18 05:24 INR (Anticoag Therapy) 1.10 (0.77-1.02) H 07/03/18 14:02 APTT 27.2 seconds (26.0-36.3) 07/02/18 17:51 Sodium 135 mmol/L (135-145) 07/05/18 05:24 Potassium 4.2 mmol/L (3.5-5.0) 07/05/18 05:24 Chloride 106 mmol/L (101-111) 07/05/18 05:24 Carbon Dioxide 24 mmol/L (22-32) 07/05/18 05:24 Anion Gap 5 mmol/L (2-11) 07/05/18 05:24 BUN 25 mg/dL (6-24) H 07/05/18 05:24 Creatinine 0.45 mg/dL (0.51-0.95) L 07/05/18 05:24 Est GFR ( Amer) 165.3 (>60) 07/05/18 05:24 Est GFR (Non-Af Amer) 136.6 (>60) 07/05/18 05:24 BUN/Creatinine Ratio 55.6 (8-20) H 07/05/18 05:24 Glucose 103 mg/dL (70-100) H 07/05/18 05:24 Lactic Acid 1.6 mmol/L (0.5-2.0) 07/02/18 17:51 Calcium 9.2 mg/dL (8.6-10.3) 07/05/18 05:24 Magnesium 2.1 mg/dL (1.9-2.7) 07/03/18 14:02 Total Bilirubin 0.50 mg/dL (0.2-1.0) 07/02/18 17:51 AST 20 U/L (13-39) 07/02/18 17:51 ALT 15 U/L (7-52) 07/02/18 17:51 Alkaline Phosphatase 126 U/L (34-104) H 07/02/18 17:51 Troponin I 0.01 ng/mL (<0.04) 07/02/18 17:51 Total Protein 6.9 g/dL (6.4-8.9) 07/02/18 17:51 Albumin 4.1 g/dL (3.2-5.2) 07/02/18 17:51 Globulin 2.8 g/dL (2-4) 07/02/18 17:51 Albumin/Globulin Ratio 1.5 (1-3) 07/02/18 17:51 Urine Color Yellow 07/05/18 10:00 Urine Appearance Clear 07/05/18 10:00 Urine pH 5.0 (5-9) 07/05/18 10:00 Ur Specific [place] 1.021 (1.010-1.030) 07/05/18 10:00 Urine Protein 1+(30 mg/dl) (Negative) A 07/05/18 10:00 Urine Ketones Trace (Negative) A 07/05/18 10:00 Urine Blood 3+ (Negative) A 07/05/18 10:00 Urine Nitrate Negative (Negative) 07/05/18 10:00 Urine Bilirubin Negative (Negative) 07/05/18 10:00 Urine Urobilinogen Negative (Negative) 07/05/18 10:00 Ur Leukocyte Esterase Trace (Negative) A 07/05/18 10:00 Urine WBC (Auto) 3+(>20/hpf) (Absent) A 07/05/18 10:00 Urine RBC (Auto) 3+(>10/hpf) (Absent) A 07/05/18 10:00 Urine Bacteria Absent (Absent) 07/05/18 10:00 Urine Glucose Negative (Negative) 07/05/18 10:00 Urine Ascorbic Acid * (Negative) A 07/05/18 10:00 Blood Type A Positive 07/02/18 17:51 Antibody Screen Negative 07/02/18 17:51 Vital Signs Temp 97.3 F 07/05/18 08:05 Pulse 89 07/05/18 08:05 Resp 18 07/05/18 08:05 BP 136/65 07/05/18 08:05 Pulse Ox 94 07/05/18 10:15 Intake & Output 07/04/18 07/05/18 07/05/18 18:59 06:59 18:59 Intake Total 320 80 120 Output Total 300 600 Balance 20 -520 120 Intake: Oral 320 80 120 Output: Burrows 300 600 Other: # Bowel Movements 0
[2018-07-06 05:46] LABS: ABS Basophils 0 10^3/ul (0-0.2); ABS Eosinophils 0.1 10^3/ul (0-0.6); ABS Monocytes 1.5 10^3/ul (0-0.8); ABS Neutrophils 10.1 10^3/ul (1.5-7.7); ABS Nucleated RBC 0 10^3/ul; Hematocrit 34 % (35-47); Hemoglobin 11.5 g/dl (12.0-16.0); Lymphocyte % 8.1 % (25-47); Mean Corpuscular HGB Conc 34 g/dl (31-36); Mean Corpuscular Hemoglobin 29 pg (27-31); Mean Corpuscular Volume 85 fL (80-97); Mean Platelet Volume 9.5 um3 (7.4-10.4); Nucleated Red Blood Cells % 0; Platelet Count 168 10^3/ul (150-450); Red Blood Count 3.98 10^6/ul (4.00-5.40); Red Cell Distribution Width 15 % (10.5-15); White Blood Count 12.7 10^3/ul (3.5-10.8)
[2018-07-06] MEDS: Enoxaparin(*) 30 MG/0.3 ML SYR SUBCUT SCH (08:11)
[2018-07-06] MEDS: Metoprolol Tartrate TAB* 25 MG PO SCH ×2 (08:11→20:45)
[2018-07-06] MEDS: Acetaminophen TAB* 325 MG PO PRN ×2 (08:25→17:04)
--- NOTE | 2018-07-06 10:04 | PN ---
Progress Note - Progress Note Date of Service: 07/06/18 SOAP: Subjective: POD #3 Left hip ORIF with gamma nail. Doing well, pain controlled with Tylenol. Denies CP/SOB, f/c or calf pain. Objective: Vitals: Temp Pulse Resp BP Pulse Ox 97.4 F 94 20 113/64 93 07/06/18 07:42 18 07:42 07/06/18 09:56 07/06/18 07:42 07/06/18 08:15 Gen: A&O x3, NAD at rest sitting in chair Left hip: Dressing C/D/I. Thigh and calf soft, NT. +f/e at ankle and MTPs, N/V intact Labs: Laboratory Results - last 24 hr 07/05/18 07/06/18 10:00 05:28 WBC 12.7 H RBC 3.98 L Hgb 11.5 L Hct 34 L MCV 85 MCH 29 MCHC 34 RDW 15 Plt Count 168 MPV 9.5 Neut % (Auto) 79.1 Lymph % (Auto) 8.1 L [place] % (Auto) 11.5 H Eos % (Auto) 1.0 Baso % (Auto) 0.3 Absolute Neuts (auto) 10.1 H Absolute Lymphs (auto) 1.0 Absolute Monos (auto) 1.5 H Absolute Eos (auto) 0.1 Absolute Basos (auto) 0 Absolute Nucleated RBC 0 Nucleated RBC % 0 Urine Color Yellow Urine Appearance Clear Urine pH 5.0 Ur Specific [place] 1.021 Urine Protein 1+(30 mg/dl) A Urine Ketones Trace A Urine Blood 3+ A Urine Nitrate Negative Urine Bilirubin Negative Urine Urobilinogen Negative Ur Leukocyte Esterase Trace A Urine WBC (Auto) 3+(>20/hpf) A Urine RBC (Auto) 3+(>10/hpf) A Urine Bacteria Absent Urine Glucose Negative Urine Ascorbic Acid * A Assessment: POD #3 Left hip ORIF Plan: PT/OT Xray ordered today Pt awaiting bed at [facility] as insurance denied PMRU Urine cx pending
--- NOTE | 2018-07-06 10:57 | RAD ---
INDICATION: Postoperative COMPARISON: Left hip July 03, 2018 TECHNIQUE: An AP view of the pelvis and AP views of the hip in neutral and abducted position were obtained FINDINGS: There is left femoral nailing. The anatomic relationships across the intratrochanteric region of the uterus toward. There are no additional significant bony findings. IMPRESSION: INTERVAL LEFT FEMORAL NAILING.
--- NOTE | 2018-07-06 13:31 | PN ---
Subjective Date of Service: 07/06/18 Interval History: Pt feels well. Denies SOB. still has post op pain when trying to ambulate Objective Active Medications: Acetaminophen (Tylenol Tab*) 650 mg PO Q6H PRN PRN Reason: PAIN Last Admin: 07/06/18 08:25 Dose: 650 mg Docusate Sodium (Colace Cap*) 100 mg PO BID PRN PRN Reason: CONSTIPATION Enoxaparin Sodium (Lovenox(*)) 30 mg SUBCUT DAILY [facility] Last Admin: 07/06/18 08:11 Dose: 30 mg Metoprolol Tartrate (Lopressor Tab*) 25 mg PO BID [facility] Last Admin: 07/06/18 08:11 Dose: 25 mg Metoprolol Tartrate (Lopressor Iv*) 5 mg IV Q6H PRN PRN Reason: BLOOD PRESSURE Morphine Sulfate (Morphine Inj ((Syringe))*) 2 mg IV Q2H PRN PRN Reason: PAIN Last Admin: 07/04/18 03:24 Dose: 2 mg Ondansetron HCl (Zofran Inj*) 4 mg IV Q6H PRN PRN Reason: NAUSEA Oxycodone/Acetaminophen (Percocet 5/325 Tab*) 1 tab PO Q4H PRN PRN Reason: PAIN Polyethylene Glycol/Electrolytes (Miralax*) 17 gm PO DAILY PRN PRN Reason: CONSTIPATION Senna (Senokot Tab*) 1 tab PO BEDTIME PRN PRN Reason: CONSTIPATION Vital Signs - 8 hr 07/06/18 07/06/18 07/06/18 07:42 08:15 09:56 Temperature 97.4 F Pulse Rate 94 Respiratory 18 20 Rate Blood Pressure 113/64 (mmHg) O2 Sat by Pulse 93 93 Oximetry Oxygen Devices in Use Now: Simple Face Mask Appearance: 72 yo f in nAD, aAOx3 Eyes: No Scleral Icterus, PERRLA Ears/Nose/Mouth/Throat: NL Teeth, Lips, Gums, Mucous Membranes Moist Neck: NL Appearance and Movements; NL JVP, Trachea Midline Respiratory: Symmetrical Chest Expansion and Respiratory Effort, - - crackles ta b/l bases Cardiovascular: RRR, - - 3/6 GHADA Abdominal: NL Sounds; No Tenderness; No Distention, No Hepatosplenomegaly Lymphatic: No Cervical Adenopathy Extremities: No Edema, No Clubbing, Cyanosis Skin: - - left thigh incision -surgical dressings not uncovered Neurological: Alert and Oriented x 3, NL Muscle Strength and Tone Result Diagrams: 07/06/18 05:28 07/05/18 05:24 Microbiology and Other Data: Microbiology 07/05/18 10:00 Urine Culture - Final Urine No Growth (<1,000 CFU/mL) Assess/Plan/Problems-Billing Assessment: - Patient Problems (1) Hip fracture Comment: s/p left hip surgery by Dr. Chapin on 07/03/18 post op on telem (no arrythmia noted), then transfered to [facility] on 07/04/18 Leukocytosis-likely reactive and improving without antibiotics WBAT PT/OT ongoing. Plan to d/c to [facility] once facility accepts pt. (2) HTN (hypertension) Comment: likely longstanding and the cause of LVH with LVOT obstruction noted on Echo (pt needs outpatient cardiology f/u) lopressor started at admission (3) DVT prophylaxis Comment: Lovenox as per ortho Status and Disposition: inpatient
[2018-07-07] MEDS: Acetaminophen TAB* 325 MG PO PRN (05:36)
--- NOTE | 2018-07-07 09:01 | PN ---
Progress Note - Progress Note Date of Service: 07/07/18 SOAP: Subjective: POD #4 Left hip ORIF. Pt doing well, c/o discomfort with ambulation, better at rest. Denies CP/SOB, calf pain, f/c, n/v. Objective: Vitals: Temp Pulse Resp BP Pulse Ox 97.3 F 95 16 142/68 93 18/18 03:54 18 03:54 07/07/18 03:54 07/07/18 03:54 07/07/18 03:54 Gen: A&Ox3, NAD at rest sitting in chair Left Hip: Incisions C/D/I with jodie, no erythema or drainage. +f/e at knee, ankle and MTPs. N/V intact Xray: Left hip hardware intact, fracture fragments without displacement Assessment: POD #4 Left hip ORIF Plan: Pt offered bed at [facility], waiting for transfer Monday Cont PT/OT, WBAT left hip Lovenox for DVT ppx
[2018-07-07] MEDS: Enoxaparin(*) 30 MG/0.3 ML SYR SUBCUT SCH (09:22)
[2018-07-07] MEDS: Metoprolol Tartrate TAB* 25 MG PO SCH ×2 (09:22→20:36)
--- NOTE | 2018-07-07 17:21 | PN ---
Subjective Date of Service: 07/07/18 Interval History: Pt with no complaints. 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 prefers Naturopathic/herbals Objective Active Medications: Acetaminophen (Tylenol Tab*) 650 mg PO Q6H PRN PRN Reason: PAIN Last Admin: 07/07/18 05:36 Dose: 650 mg Docusate Sodium (Colace Cap*) 100 mg PO BID PRN PRN Reason: CONSTIPATION Enoxaparin Sodium (Lovenox(*)) 30 mg SUBCUT DAILY [facility] Last Admin: 07/07/18 09:22 Dose: 30 mg Metoprolol Tartrate (Lopressor Tab*) 25 mg PO BID [facility] Last Admin: 07/07/18 09:22 Dose: 25 mg Metoprolol Tartrate (Lopressor Iv*) 5 mg IV Q6H PRN PRN Reason: BLOOD PRESSURE Morphine Sulfate (Morphine Inj ((Syringe))*) 2 mg IV Q2H PRN PRN Reason: PAIN Last Admin: 07/04/18 03:24 Dose: 2 mg Ondansetron HCl (Zofran Inj*) 4 mg IV Q6H PRN PRN Reason: NAUSEA Oxycodone/Acetaminophen (Percocet 5/325 Tab*) 1 tab PO Q4H PRN PRN Reason: PAIN Polyethylene Glycol/Electrolytes (Miralax*) 17 gm PO DAILY PRN PRN Reason: CONSTIPATION Senna (Senokot Tab*) 1 tab PO BEDTIME PRN PRN Reason: CONSTIPATION Vital Signs - 8 hr 07/07/18 07/07/18 07/07/18 09:30 11:55 15:23 Temperature 97.3 F 98.6 F Pulse Rate 79 92 Respiratory 16 18 18 Rate Blood Pressure 123/50 100/60 (mmHg) O2 Sat by Pulse 94 91 Oximetry 07/07/18 15:52 Temperature Pulse Rate Respiratory Rate Blood Pressure (mmHg) O2 Sat by Pulse 94 Oximetry Oxygen Devices in Use Now: None Appearance: NAD, sitting in chair. Ears/Nose/Mouth/Throat: NL Teeth, Lips, Gums Neck: NL Appearance and Movements; NL JVP Respiratory: Symmetrical Chest Expansion and Respiratory Effort, Clear to Auscultation Cardiovascular: - - 3/6 pansystolic murmur throughout precordium. Abdominal: NL Sounds; No Tenderness; No Distention, No Hepatosplenomegaly Extremities: No Edema, No Clubbing, Cyanosis Skin: No Rash or Ulcers, No Nodules or Sclerosis Neurological: Alert and Oriented x 3, NL Sensation Nutrition: Taking PO's Result Diagrams: 07/06/18 05:28 07/05/18 05:24 Microbiology and Other Data: Microbiology 07/05/18 10:00 Urine Urine Culture - Final No Growth (<1,000 CFU/mL) Assess/Plan/Problems-Billing Assessment: 72 yo female PMH HTN on no meds p/w fall and intertrochanteric left hip fracture. severe LHV, LVOT, moderate-severe pHTN. - Patient Problems (1) Hip fracture Current Visit: Yes Status: Acute Code(s): S72.009A - FRACTURE OF UNSP PART OF NECK OF UNSP FEMUR, INIT SNOMED Code(s): 273866707 Comment: s/p left hip surgery by Dr. Chapin on 07/03/18 post op on telem (no arrythmia noted), then transfered to [facility] on 07/04/18 Leukocytosis-likely reactive and improving without antibiotics WBAT PT/OT ongoing. Plan to d/c to [facility] on Monday. (2) DVT prophylaxis Current Visit: Yes Status: Acute Code(s): WFO0046 - SNOMED Code(s): 175298889 Comment: Lovenox as per ortho (3) HTN (hypertension) Current Visit: Yes Status: Acute Code(s): I10 - ESSENTIAL (PRIMARY) HYPERTENSION SNOMED Code(s): 78522190 Comment: likely longstanding and the cause of LVH with LVOT obstruction noted on Echo (pt needs outpatient cardiology f/u) lopressor 25 bid started at admission Status and Disposition: inpatient. has bed offer from [facility] (her 2nd choice, also waiting to hear from 1st choice).
--- NOTE | 2018-07-08 08:04 | PN ---
Progress Note - Progress Note Date of Service: 07/08/18 SOAP: Subjective: POD #5 Left hip ORIF. Pt doing well, c/o pain only with ambulation. Awaiting bed at [facility]. Denies CP/SOB, f/c, n/v or calf pain. Objective: Vitals: Vital Signs: Temp Pulse Resp BP Pulse Ox 99.0 F 89 16 112/63 94 07/08/18 07:31 07/08/18 07:31 07/08/18 07:31 07/08/18 07:39 07/08/18 07:31 Gen: A&Ox3, NAD at rest Left hip: Dressing C/D/I, thigh and calf soft/NT. +f/e at ankle and MTPs. N/V intact Assessment: POD #5 Left hip ORIF Plan: Cont WBAT LLE, PT/OT Awaiting bed at [facility] Lovenox for DVT ppx
[2018-07-08] MEDS: Metoprolol Tartrate TAB* 25 MG PO SCH ×2 (09:12→20:04)
[2018-07-08] MEDS: Enoxaparin(*) 30 MG/0.3 ML SYR SUBCUT SCH (09:12)
[2018-07-08] MEDS: Acetaminophen TAB* 325 MG PO PRN ×2 (11:41→20:04)
--- NOTE | 2018-07-08 16:48 | PN ---
Subjective Date of Service: 07/08/18 Interval History: Feeling well, some pain in left hip with ambulation to the bathroom. Brother reports it was verapamil that pt had previous side effect of constipation with. Her naturopathic doctor is Idania Nunn, scheduled to see near end of July. Desat at night, was 88% on RA this AM. 2L at night. Objective Active Medications: Acetaminophen (Tylenol Tab*) 650 mg PO Q6H PRN PRN Reason: PAIN Last Admin: 07/08/18 11:41 Dose: 650 mg Docusate Sodium (Colace Cap*) 100 mg PO BID PRN PRN Reason: CONSTIPATION Enoxaparin Sodium (Lovenox(*)) 30 mg SUBCUT DAILY [facility] Last Admin: 07/08/18 09:12 Dose: 30 mg Metoprolol Tartrate (Lopressor Tab*) 25 mg PO BID [facility] Last Admin: 07/08/18 09:12 Dose: 25 mg Metoprolol Tartrate (Lopressor Iv*) 5 mg IV Q6H PRN PRN Reason: BLOOD PRESSURE Morphine Sulfate (Morphine Inj ((Syringe))*) 2 mg IV Q2H PRN PRN Reason: PAIN Last Admin: 07/04/18 03:24 Dose: 2 mg Ondansetron HCl (Zofran Inj*) 4 mg IV Q6H PRN PRN Reason: NAUSEA Oxycodone/Acetaminophen (Percocet 5/325 Tab*) 1 tab PO Q4H PRN PRN Reason: PAIN Polyethylene Glycol/Electrolytes (Miralax*) 17 gm PO DAILY PRN PRN Reason: CONSTIPATION Senna (Senokot Tab*) 1 tab PO BEDTIME PRN PRN Reason: CONSTIPATION Vital Signs - 8 hr 07/08/18 07/08/18 11:46 15:28 Temperature 98.0 F 98.8 F Pulse Rate 78 84 Respiratory 18 19 Rate Blood Pressure 123/63 113/56 (mmHg) O2 Sat by Pulse 93 93 Oximetry Oxygen Devices in Use Now: None Appearance: NAD, sitting in chair. Eyes: No Scleral Icterus, PERRLA Ears/Nose/Mouth/Throat: NL Teeth, Lips, Gums Neck: NL Appearance and Movements; NL JVP Respiratory: Symmetrical Chest Expansion and Respiratory Effort, Clear to Auscultation Cardiovascular: - - 3/6 holosystolic murmur loudest LUSB/RUSB. no r/g Abdominal: NL Sounds; No Tenderness; No Distention, No Hepatosplenomegaly Extremities: No Edema, No Clubbing, Cyanosis Skin: No Rash or Ulcers Neurological: Alert and Oriented x 3, NL Sensation, NL Muscle Strength and Tone Nutrition: Taking PO's Result Diagrams: 07/06/18 05:28 07/05/18 05:24 Microbiology and Other Data: Microbiology 07/05/18 10:00 Urine Urine Culture - Final No Growth (<1,000 CFU/mL) Assess/Plan/Problems-Billing Assessment: 72 yo female PMH HTN on no meds(w/ strong naturopathic inclinations) p/w fall after dog pulled her. Intertrochanteric left hip fracture s/p ORIF. severe LVH, severe LVOT, moderate-severe pHTN, moderate MVR, moderate TVR. - Patient Problems (1) Hip fracture Current Visit: Yes Status: Acute Code(s): S72.009A - FRACTURE OF UNSP PART OF NECK OF UNSP FEMUR, INIT SNOMED Code(s): 038078317 Comment: s/p left hip ORIF surgery by Dr. Chapin on 07/03/18. post op on telem (no arrythmia noted), then transfered to [facility] on 07/04/18 WBAT PT/OT ongoing. Plan to d/c to [facility] on Monday. (2) DVT prophylaxis Current Visit: Yes Status: Acute Code(s): SEE0667 - SNOMED Code(s): 631970815 Comment: Lovenox as per ortho (3) HTN (hypertension) Current Visit: Yes Status: Acute Code(s): I10 - ESSENTIAL (PRIMARY) HYPERTENSION SNOMED Code(s): 71191035 Comment: likely longstanding and the cause of LVH with LVOT obstruction noted on Echo (pt needs outpatient cardiology f/u) lopressor 25 bid started at admission (4) Left ventricular outflow tract obstruction Current Visit: Yes Status: Acute Code(s): Q24.8 - OTHER SPECIFIED CONGENITAL MALFORMATIONS OF HEART SNOMED Code(s): 647425171 Comment: BB started this admission. Previous constipation side effect with verapamil She will establish with a new Child Daycare Worker after discharge as she did not like her old one. (5) Pulmonary hypertension Current Visit: Yes Status: Acute Code(s): I27.20 - PULMONARY HYPERTENSION, UNSPECIFIED SNOMED Code(s): 62479007 Comment: moderate to severe. f/u with cardiology as outpatient. (6) Hypoxia Current Visit: Yes Status: Acute Code(s): R09.02 - HYPOXEMIA SNOMED Code(s ): 056950525 Comment: at night desats. getting BNP in AM and nocturnal pulse ox check to see if qualifies for O2. recommend sleep test as outpatient. Status and Disposition: inpatient. has bed offer from [facility], also waiting to hear from 1st choice).
[2018-07-09 05:37] LABS: Hematocrit 33 % (35-47); Hemoglobin 11.3 g/dl (12.0-16.0); Mean Corpuscular HGB Conc 34 g/dl (31-36); Mean Corpuscular Hemoglobin 29 pg (27-31); Mean Corpuscular Volume 85 fL (80-97); Mean Platelet Volume 8.9 um3 (7.4-10.4); Platelet Count 233 10^3/ul (150-450); Red Blood Count 3.88 10^6/ul (4.00-5.40); Red Cell Distribution Width 15 % (10.5-15); White Blood Count 9.3 10^3/ul (3.5-10.8)
[2018-07-09 05:56] LABS: ABS Basophils 0.1 10^3/ul (0-0.2); ABS Eosinophils 0.2 10^3/ul (0-0.6); ABS Lymphocytes 1.2 10^3/ul (1.0-4.8); ABS Neutrophils 6.9 10^3/ul (1.5-7.7); ABS Nucleated RBC 0 10^3/ul; EGFR Non-African American 143.9 (>60); Lymphocyte % 12.5 % (25-47); Nucleated Red Blood Cells % 0
[2018-07-09] MEDS: Metoprolol Tartrate TAB* 25 MG PO SCH (08:20)
[2018-07-09] MEDS: Acetaminophen TAB* 325 MG PO PRN (08:20)
[2018-07-09] MEDS: Enoxaparin(*) 30 MG/0.3 ML SYR SUBCUT SCH (08:21)
[2018-07-09] MEDS ORDERED: Furosemide IV* 10 MG/ML 2 ML VIAL (20 MG) IV SLOW PU ONE (08:25)
--- NOTE | 2018-07-09 10:32 | DS ---
AMENDED REPORT NOW INCLUDES COSIGNER DESIGNATION - ESIGNED BEFORE ADJUSTMENTS CC: Dr. Araya; Dr. Idania Nunn in [place]; Dr. Abhilash Segovia; Dr. Pao Chapin * DISCHARGE SUMMARY: DATE OF ADMISSION: 07/02/18 DATE OF DISCHARGE: 07/09/18 ATTENDING FOR THIS ADMISSION: Dr. Abhilash Segovia. MY ATTENDING FOR TODAY: Dr. Jasen Araya.* (DICTATED BY JOSELYN GALINDO , [place]) PRIMARY CARE PROVIDER: Dr. Idania Nunn. HOSPITAL COURSE: This is a pleasant 72-year-old female patient who presented after sustaining a fall at home and was brought to the emergency department for difficulty with ambulation. She reportedly had a fall after being pulled by her dog. Subsequently, she has an intertrochanteric left hip fracture. She underwent ORIF, she is postop day 5. For her preoperative clearance, an echocardiogram was performed. She does have severe left ventricular hypertrophy and severe left ventricular outlet obstruction and moderate-to- severe pulmonary hypertension, moderate mitral valve regurgitation, and also moderate tricuspid valve regurgitation. The patient underwent her procedure with Dr. Ellen Chapin. She had postoperative telemetry showing no arrhythmias and no acute changes. The patient does have a history of hypertension, which is likely the cause of her LVOT and her LVH. She was started on a beta- antionette. She is also having some desaturations. The patient was placed on oxygen in the evening. She was having nighttime desats. Her BNP was slightly elevated in the 700 range this morning. She appears to be slightly fluid overloaded, but not in florid heart failure. She received very mild diuresis at 20 mg of Lasix IV this morning and will be discharged on low-dose Lasix and recheck a BNP later this week. DISCHARGE DIAGNOSES: 1. Status post mechanical fall with hip fracture, postoperative day 5 open reduction and internal fixation. 2. Hypertension. Continue on beta-antionette. 3. Left ventricular outflow tract obstruction. Again continue beta-antionette and also Lasix 10 mg daily. 4. Pulmonary hypertension, moderate to severe. 5. Hypoxia, on oxygen. DISCHARGE MEDICATIONS: Include: 1. Oxycodone/acetaminophen 5/325 one tab q.4 hours as needed. 2. Senna 1 tablet at bedtime as needed. 3. MiraLAX 17 g daily as needed. 4. Metoprolol tartrate 25 mg 2 times a day. 5. Furosemide 10 mg daily. 6. Lovenox 30 mg subcu daily for 30 days. 7. Docusate 100 mg 2 times a day as needed. 8. Tylenol 650 mg q.6 hours as needed. REVIEW OF SYSTEMS: Today, the patient does not complain of fever, fatigue, or chills. She has no chest pain, no shortness of breath. No nausea, no vomiting. No urinary complaints. No bowel complaints and no further constitutional complaints. Hip pain is well controlled. She is ambulatory with some assistance. PHYSICAL EXAM: Today, vital signs are blood pressure 154/75, heart rate 81, respiratory rate 18, satting at 100% on 2 L nasal cannula, temperature is 97.8. HEENT: The patient is atraumatic, normocephalic. PERRLA with nonicteric sclerae. Oral mucosa is moist. Tongue is midline. Neck is supple, nontender. No JVD noted. No carotid bruit auscultated. Cardiovascular: S1, S2 present. She has a grade 4/6 murmur noted. No gallops or rubs. Rate and rhythm are regular. Lungs are clear at the apices bilaterally. Slightly diminished at the bases with no wheezing, rhonchi, or rales. Abdomen is soft, nontender, and nondistended. Positive bowel sounds in all 4 quadrants. was deferred. Musculoskeletal: There is no clubbing, no cyanosis, and no edema. She has some point tenderness over the left hip in the sage-incisional region. Her dressing is clean, dry, and intact. No hematoma or exudate noted. She has +2 distal pulses palpable. Full range of motion, although she does have some restricted range in the operative site secondary to pain. Neurologic: She is grossly intact with no focal deficits. Psychiatric: She is cooperative and appropriate. LABORATORY DATA: WBC is 9.3, RBC is 3.88, hemoglobin 11.3, hematocrit 33, platelets 233. Sodium 137, potassium 4.6, chloride 106, CO2 of 29, BUN 21, creatinine 0.43, GFR 143.9, glucose 98, calcium 9.5. BNP 739. Triglycerides 101, cholesterol 145, LDL 99, and HDL 25.5. INR is 1.10. Urinalysis shows asymptomatic bacteriuria. She has 3+ wbc's, 3+ rbc's, negative for bacteria, and negative for nitrites. DISPOSITION: The patient will be discharged to care of her brother that will transport her to [facility] subacute rehab in [place]. DIET: She should have a heart-healthy diet. ACTIVITY: PT as tolerated with no restrictions. ALLERGIES: She patient has an allergy to SULFA. FOLLOWUPS: The patient was instructed to follow up with Dr. Nunn, her warehouse inventory clerk and that she has an appointment with in July. Dr. Pao Chapin 2 weeks postoperatively. Jarod should be removed in approximately 5 days. The patient has also stated she will find a local supervisor blueprinting and photocopy. At this point, we will recommend that she stay on Lasix for only 5 days and then have her BNP and electrolytes checked. Hopefully, this will decrease her O2 requirement as well. All questions were answered. The patient stated her understanding of her discharge instructions and followups. JOSELYN GALINDO NP [id number]/[facility] #: [id number] YOLY
[2018-07-09 12:22] VITALS: BP 101/57
[2018-07-10] MEDS ORDERED: Furosemide TAB* 20 MG PO SCH (09:00)
== END 2018-07-09 13:40 | DRG 480 ==
LOC: ED 16:46 → SSU 20:48 → MEDTELE 07-04 00:07 → SSU 07-04 19:03
PROVIDERS: ADMIT Pediatrics; ATTEND Internal Medicine
PROC: 0QS736Z Reposition Left Upper Femur with Intramedullary Internal Fixation Device, Percutaneous Approach (ICD-10-PCS; principal; 2018-07-03 16:15)
DX: S72.142A Displaced intertrochanteric fracture of left femur, initial encounter for closed fracture (principal); Q21.3 Tetralogy of Fallot; W18.39XA Other fall on same level, initial encounter; I10 Essential (primary) hypertension; I27.20 Pulmonary hypertension, unspecified; R09.02 Hypoxemia; I08.1 Rheumatic disorders of both mitral and tricuspid valves; R01.1 Cardiac murmur, unspecified; Z88.2 Allergy status to sulfonamides; Y92.9 Unspecified place or not applicable; Z82.49 Family history of ischemic heart disease and other diseases of the circulatory system
CPT/HCPCS: 36415; 71045; 72192; 76000; 80048; 80053; 80061; 81003; 81015; 83605; 83735; 83880; 84484; 85025; 85027; 85610; 85730; 86850; 86900; 86901; 87086; 93005; 93306; 94762; 99284; A9270-GY; C1713; C1776; G8978-GP-CK; G8979-GP-CI; G8987-GO-CK; G8988-GO-CH; J0690; J1644; J1650; J1940; J2270; J2704; J2795; J3010; J3490